=== PATIENT | male | born 1980 | race Caucasian/White ===

== ENCOUNTER 2022-08-24 17:20 | Emergency (ER) | payer OTHER ==
[~2022-08-24] VITALS: Ht 172 cm; Wt 108.0 kg
[2022-08-24 17:26] VITALS: BP 133/95
--- NOTE | 2022-08-24 17:44 | ED Integumentary General ---
General Chief Complaint: Trauma-Non Activation Stated Complaint: BLISTER FROM SUNBURN ON ARMS Nursing Triage Note: TO TRIAGE WITH BILAT SUNBURN TO LOWER ARMS. ORIGINAL BURN WAS ON SUNDAY. TODAY HE SPRAYED 30 SPORT CLEAR SUN SPRAY AND WAS OUT IN THE SUN AGAIN AND NOW IS BLISTERED. Source: patient Exam Limitations: no limitations History of Present Illness Date Seen by Provider: August 24, 2022 Time Seen by Provider: 17:44 Initial Comments Patient is a 42-year-old male who presents ED with sunburn bilateral upper arms. Patient states he started working at [employer]. 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 Start developing redness to his upper extremities. Patient applied [employer] heat sport 30 on his arms today went to work started having pain and blistering of his right arm. Patient did apply the sunscreen to his legs and did not get any blistering. He has used a sunscreen in the past. Unclear if this is secondary to the sun. Patient rates pain 1 out of 10. Able to move his hand and digits without difficulties. Blisters are draining clear fluid. Not up-to-date on his tetanus. Denies numbness and tingling, fever, nausea, vomiting, diarrhea. He reports some redness and some burn to his forehead. Allergies and Home Medications Allergies Coded Allergies: No Known Drug Allergies (Unverified , 08/24/22) Patient Home Medication List Home Medication List Reviewed: Yes Bacitracin (Bacitracin) 500 Unit/Gram Oint...g., 28.4 GM TP BID Prescribed by: MARY KO on 08/24/221748 Cephalexin (Cephalexin) 500 Mg Tablet, 500 MG PO QID Prescribed by: MARY KO on 08/24/221748 Review of Systems Review of Systems Constitutional: No chills, No diaphoresis, No fever, No malaise, No weakness EENTM: No hearing loss, No ear pain, No blurred vision, No double vision Respiratory: No cough, No dyspnea on exertion Cardiovascular: No chest pain Gastrointestinal: No abdominal pain, No diarrhea, No nausea, No vomiting Genitourinary: No decreased output, No discharge Musculoskeletal: No back pain, No joint pain Skin: change in color; No change in hair/nails; other (Blister) All Other Systems Reviewed Negative Unless Noted: Yes Past Atyitfn-Flzmrj-Wigclt Hx Patient Social History Tobacco Use?: No Substance use?: Yes Substance type: Marijuana Alcohol Use?: Yes Alcohol Frequency: Rarely Physical Exam Vital Signs Vital Signs - First Documented 08/24/22 17:26 Temp 36.3 Pulse 75 Resp 16 B/P (MAP) 133/95 (108) Pulse Ox 99 O2 Delivery Room Air Capillary Refill : Less Than 3 Seconds General Appearance: WD/WN, no apparent distress HEENT: PERRL/EOMI, normal ENT inspection, TMs normal, pharynx normal Neck: non-tender, full range of motion, normal inspection Cardiovascular: regular rate, rhythm, no edema, no gallop, no JVD Respiratory: chest non-tender, lungs clear, normal breath sounds, no respiratory distress, no accessory muscle use Gastrointestinal: normal bowel sounds, non tender, soft, no organomegaly Back: normal inspection, no CVA tenderness, no vertebral tenderness Extremities: other (Erythema noted to the dorsum side bilateral forearms with clear fluid blisters several. Normal active range of motion of the digits bilateral and wrist and elbow.) Skin: other (Superficial erythema bilateral dorsum forearms with several fluid- filled blisters. No pustules. Mild drainage.) Progress/Results/Core Measures Results/Orders My Orders Orders - SHANTANU WEBSTER Dipht,Pertuss(Acell),Tet Adult (Boostrix (08/24/22 17:45) Medications Given in ED Current Medications Medications Dose Ordered Sig/Enrike Route Start Time Stop Time Status Last Admin Dose Admin Diphtheria/ Tetanus/Acell Pertussis 0.5 ml ONCE ONCE IM 08/24/22 17:45 08/24/22 17:46 DC 08/24/22 18:32 0.5 ML Vital Signs/I&O 08/24/22 17:26 Temp 36.3 Pulse 75 Resp 16 B/P (MAP) 133/95 (108) Pulse Ox 99 O2 Delivery Room Air Blood Pressure Mean: 108 Departure Communication (PCP) Reviewed previous ER visits, H&P, lab testing. Complaining of bilateral forearm pain with blisters and redness. Differential diagnosis of first or second- degree mendoza, cellulitis, chemical reaction. patient has second-degree mendoza to his forearms bilateral. Located on the dorsum side. Fluid-filled sacs. No evidence of exudate. 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 Typically does not go outside. Fair skin. On exam several fluid-filled blisters. These areas were left. Remove the sunscreen. I do not believe this is irritation from the sunscreen. Sweating makes it worse. Clean the area with normal saline.. Applied Neosporin throughout the arm. Applied Xeroform gauze at this time. Curlex was applied. Updated his tetanus. No evidence suggesting cellulitis. Due to extensive redness and blisters will discharge Keflex prophylactically. Rates pain 1 out of 10. No evidence of contraction. Moving his extremities. I do think patient needs to follow-up with wound care for potential debridement and management of these mendoza. Provided this in discharge instructions. Refuse anything for pain. Allow the dressing to stay on there for 24 hours. Discussed bacitracin twice a day with dressing changes daily with nonadherent and Kerlix. If any worsening pain, fever to return back to ED. Patient has no oral lesions. Does have some first-degree burn to his forehead. Impression Primary Impression: Sunburn Disposition: 01 HOME, SELF-CARE Condition: Stable Departure-Patient Inst. Decision time for Depature: 17:48 [facility]: [facility] [place]ructions: Evonne ([place]) Add. Discharge Instructions: Recommend applying bacitracin twice a day.. Keep the area covered with gauze. Recommend following up with the wound care clinic. [phone]. If increased pain, fever, purulent drainage return back to the ED. All discharge instructions reviewed with patient and/or family. Voiced understanding. Scripts Cephalexin (Cephalexin) 500 Mg Tablet 500 MG PO QID for 7 Days, #28 TAB Prov: SHANTANU WEBSTER 08/24/22 Bacitracin (Bacitracin) 500 Unit/Gram Oint...g. 28.4 GM TP BID for 14 Days, #3 EA Prov: SHANTANU WEBSTER 08/24/22 Work/School Note: Work Release Form Date Seen in the Emergency Department: August 24, 2022 Return to Work: August 28, 2022 Restrictions: Recommend avoiding the sun and outside for least 4 days. SHANTANU WEBSTER August 24, 2022 17:44
[2022-08-24] MEDS ORDERED: TETANUS,DIPTH,PERTUSS P/F (BOOSTRIX) 0.5 ML VIAL IM ONE (17:45)
[2022-08-24] MEDS ORDERED: CEPH500T PO (17:49)
[2022-08-24] MEDS ORDERED: BACI28.4 TP (17:49)
== END 2022-08-24 18:38 | disposition home or self-care (01) ==
LOC: EDUNIT# 17:20 → ER 17:24
DX: L55.1 Sunburn of second degree (principal); Z23 Encounter for immunization
CPT/HCPCS: 99284; A6223; 90715